=== PATIENT | female | born 2005 | race Caucasian/White ===

== ENCOUNTER 2024-12-11 01:58 | Emergency (ER) | payer SELFPAY ==
[2024-12-11] MEDS ORDERED: ONDANSETRON 4 MG/2 ML VIAL ONE ×2 (02:29→03:38)
[2024-12-11] MEDS ORDERED: NA CHLORIDE 0.9% 2,000 ML ONE (02:30)
[2024-12-11] MEDS ORDERED: Acetylcysteine 6000mg/30mL IV ONE ×2 (02:47→03:00)
[2024-12-11 02:49] LABS: Absolute Lymphocytes (CBC) 2.4 K/uL (0.7-4.9); Hematocrit 41.7 % (36.0-45.0); Hemoglobin 14.3 g/dL (12.0-15.0); MCH 29.4 pg (27.0-35.0); MCHC 34.3 g/dL (32.0-36.0); MCV 85.5 fL (80-100); MPV 7.1 fL (7.6-11.3); Nucleated RBC Absolute Count 0.0 (0-0); Nucleated Red Blood Cells % 0.1 % (0-0); RBC Red Blood Cell Count 4.87 M/uL (3.86-4.86); White Blood Count 12.40 thou/uL (4.3-10.9)
[2024-12-11 02:53] LABS: PT Prothrombin Time 14.5 SECONDS (10-13.0); PTT, Activated Partial Thromb 33.9 SECONDS (27.2-37.4); Protime INR 1.29
[2024-12-11] MEDS ORDERED: [UNRECOGNIZED DRUG - OTHER] IV ONE (02:58)
[2024-12-11 03:15] LABS: ALT/SGPT 38.0 U/L (13-56); AST/SGOT 24.0 U/L (15-37); Albumin 3.7 g/dL (3.4-5.0); Albumin/Globulin Ratio 0.9 (1.1-1.8); Alkaline Phosphatase 93.0 U/L (45-117); Anion Gap 10.8 mEq/L (5.0-15.0); BUN Blood Urea Nitrogen 8.0 mg/dL (7-18); Bilirubin Indirect, Calculated 0.3 mg/dL (0.2-0.8); Globulin 4.2 g/dL (2.3-3.5); Glucose Level 172.0 mg/dL (74-106); Potassium 2.8 mEq/L (3.5-5.1)
[2024-12-11] MEDS ORDERED: PROMETHAZINE INJ 25 MG/ML AMP ONE (04:32)
[2024-12-11] MEDS ORDERED: METOCLOPRAMIDE 10 MG/2mL INJ ONE (04:35)
[2024-12-11 04:51] LABS: METHAMPHETAM NEGATIVE (NEGATIVE); THC Cannibis NEGATIVE (NEGATIVE)
[2024-12-11] MEDS ORDERED: DIPHENHYDRAMINE 50 MG/ML VIAL ONE (04:57)
[2024-12-11] MEDS ORDERED: NA CHLORIDE 0.9% 500 ML ONE (05:10)
[2024-12-11] MEDS ORDERED: FAMOTIDINE 20 MG/2 ML VIAL IV ONE (05:11)
[2024-12-11] MEDS ORDERED: KCL 20 MEQ/100 mL IVPB 100 ML IV ONE (05:11)
--- NOTE | 2024-12-11 05:32 | EDPHYS ---
Physician Documentation [facility] Name: Stephenie Rosenberg Age: 19 yrs Sex: Female : 2005 Arrival Date: 12/11/2024 Time: 01:58 Bed 4 Private MD: ED Physician Jeffrey Newman HPI: 12/11 02:07 This 19 yrs old White Female presents to ER via Unassigned with complaints of Possible sp4 Overdose, pt stated she took 20,000mg of tylenol over the last 2 hours. 05:17 Patient presents after consuming 40 tablets of 500 mg Tylenol. Patient reports sp4 consuming the 1 hour prior to arrival. Patient states she was stressed out secondary to life issues. No previous history of overdose.. Historical: - Allergies: 02:26 mushroom; jb4 - PMHx: 02:26 None; jb4 - PSHx: 02:26 None; jb4 - Immunization history:: Adult Immunizations up to date. - Infectious Disease History:: Denies. - Social history:: Smoking status: Patient denies any tobacco usage or history of. - Family history:: not pertinent. ROS: 05:17 Constitutional: Negative for fever, chills, and weight loss, positive for Tylenol sp4 overdose , positive for suicide attempt 05:17 All other systems are negative, Exam: 05:17 Constitutional: This is a well developed, well nourished patient who is awake, alert, sp4 and in no acute distress. Head/Face: Normocephalic, atraumatic. Eyes: Pupils equal round and reactive to light, extra-ocular motions intact. Lids and lashes normal. Conjunctiva and sclera are not injected. Cornea within normal limits. Periorbital areas with no swelling, redness, or edema. ENT: Nares patent. No nasal discharge, no septal abnormalities noted. Tympanic membranes are normal and external auditory canals are clear. Oropharynx with no redness, swelling, or masses, exudates, or evidence of obstruction, uvula midline. Mucous membranes moist. Neck: Trachea midline, no thyromegaly or masses palpated, and no cervical lymphadenopathy. Supple, full range of motion without nuchal rigidity, or vertebral point tenderness. Chest/axilla: Normal chest wall appearance and motion. Nontender with no deformity. No lesions are appreciated. Cardiovascular: Regular rate and rhythm with a normal S1 and S2. No gallops, murmurs, or rubs. No pulse deficits. Respiratory: Lungs have equal breath sounds bilaterally, clear to auscultation and percussion. No rales, rhonchi or wheezes noted. No increased work of breathing, no retractions or nasal flaring. Abdomen/GI: Soft, with normal bowel sounds. No distension or tympany. No guarding or rebound. No evidence of tenderness throughout. Back: No spinal tenderness. No costovertebral tenderness. Skin: Warm, dry with normal turgor. Normal color with no rashes, no lesions, and no evidence of cellulitis. MS/ Extremity: Pulses equal, no cyanosis. Neurovascular intact. Full, normal range of motion. Neuro: Awake and alert, GCS 15, oriented to person, place, time, and situation. Cranial nerves II-XII grossly intact. Motor strength 5/5 in all extremities. Sensory grossly intact. Psych: Awake, alert, with orientation to person, place and time. Behavior, mood, and affect are within normal limits 05:17 ECG was reviewed by the Attending Physician. EKG at 0 242 normal sinus rhythm, rate 93, no ST elevation or depression, Vital Signs: 02:19 BP 151 / 93; Pulse 124; Resp 16; Temp 98.3; Pulse Ox 96% on R/A; Weight 101.8 kg (M); jb4 Height 5 ft. 1 in. (R); Pain 2/10; 03:00 BP 125 / 101; Pulse 85; Resp 18 S; Pulse Ox 97% on R/A; ha1 04:00 BP 141 / 92; Pulse 94; Resp 18 S; Pulse Ox 98% on R/A; ha1 05:00 BP 135 / 88; Pulse 76; Resp 18 S; Pulse Ox 96% on R/A; ha1 05:45 BP 134 / 76; Pulse 76; Resp 17 S; Pulse Ox 95% on R/A; ha1 06:00 BP 130 / 80; Pulse 80; Resp 19 S; Pulse Ox 95% on R/A; ha1 06:50 BP 130 / 86; Pulse 87; Resp 18 S; Pulse Ox 95% on R/A; ha1 02:19 Body Mass Index 42.41 (101.80 kg, 154.94 cm) jb4 02:19 Pain Scale: Adult jb4 Mily Coma Score: 05:17 Eye Response: spontaneous(4). Motor Response: obeys commands(6). Verbal Response: sp4 oriented(5). Total: 15. MDM: 02:16 Medical Screening Exam initiated sp4 05:31 Differential diagnosis: Ingestion/exposure to Acetaminophen polypharmacy, over sp4 medication, hypoglycemia. Data reviewed: vital signs, nurses notes, old medical records, lab test result(s), EKG. Consideration of Admission/Observation Patient was admitted/placed on observation. Escalation of care including admission/observation considered. Management of patient was discussed with the following: Manager Field Services: Discussed with [facility] attending physician.. ED course: Patient was discussed with admitting Dr. Palafox. Dr. Palafox recommended transfer for higher level of care and hepatology consult. Patient was discussed with transfer service at [facility]. [facility] reports that the patient will be on a waiting list. At this time we feel it is more appropriate for the patient to be transferred faster for consultation with gastroenterology, hepatology. Patient Tylenol level is in the toxic range. Acetadote was initiated.. 12/11 02:16 Order name: Acetaminophen; Complete Time: 03:50 sp4 12/11 06:04 Interpretation: ACETA 201.2. sp4 12/11 02:16 Order name: Basic Metabolic Panel; Complete Time: 03:50 4 12/11 02:16 Order name: CBC with Diff; Complete Time: 03:50 4 12/11 02:16 Order name: ETOH Level; Complete Time: 03:50 4 12/11 02:16 Order name: Hepatic Function; Complete Time: 03:50 sp4 12/11 02:16 Order name: PT-INR; Complete Time: 03:50 sp4 12/11 02:16 Order name: Test, Urine; Complete Time: 05:33 sp4 12/11 02:16 Order name: Ptt, Activated; Complete Time: 03:50 sp4 12/11 02:16 Order name: Salicylate; Complete Time: 03:50 sp4 12/11 02:16 Order name: Urine Drug Screen; Complete Time: 05:33 sp4 12/11 04:49 Order name: Acetaminophen; Complete Time: 06:04 sp4 12/11 02:16 Order name: EKG; Complete Time: 02:17 sp4 12/11 02:16 Order name: EKG - Nurse/Tech; Complete Time: 02:58 sp4 12/11 02:16 Order name: IV Saline Lock; Complete Time: 02:43 sp4 12/11 02:16 Order name: Labs collected and sent; Complete Time: 02:43 sp4 12/11 02:16 Order name: Suicide Precautions; Complete Time: 02:43 sp4 12/11 02:16 Order name: Suicide Screening ([place]); Complete Time: :43 sp4 EC:42 Rate is 93 beats/min. Rhythm is regular, Normal Sinus Rhythm. QRS [place] is Normal. HI sp4 interval is normal. QRS interval is normal. QT interval is normal. No Q waves. T waves are Normal. No ST changes noted. Clinical impression: No evidence of ischemia. Interpreted by me. Reviewed by me. Administered Medications: 02:42 Drug: NS 0.9% IV 1000 ml IV at 1 bolus Per protocol; to be given as a bolus over 60 ha1 minutes Route: IV; Rate: 1 bolus; Site: right antecubital; 03:45 Follow up: Response: No adverse reaction; IV Status: Completed infusion ha1 02:43 Drug: NS 0.9% IV 1000 ml IV at 1 bolus Per protocol; to be given as a bolus over 60 ha1 minutes Route: IV; Rate: 1 bolus; Site: right antecubital; 06:00 Follow up: Response: No adverse reaction; IV Status: Completed infusion ha1 02:43 Drug: Actidose-Sorbitol PO Suspension 50 grams PO once Route: PO; ha1 03:00 Follow up: Response: No adverse reaction ha1 02:43 Drug: Ondansetron IVP 4 mg IVP once; over 2 minutes Route: IVP; Site: right antecubital;ha1 03:00 Follow up: Response: No adverse reaction; No change in condition ha1 03:18 Drug: Acetadote IV 50 mg/kg IV at calculated rate once; not to exceed 5.5 grams ha1 administer over 4 hours Route: IV; Rate: calculated rate; Site: right antecubital; 07:12 Follow up: Response: No adverse reaction; IV Status: Infusion continued upon transfer ha1 03:19 Drug: Acetadote IV 150 mg/kg IV at calculated rate once; not to exceed 16.5 grams ha1 administer over 1 hour Route: IV; Rate: calculated rate; Site: right antecubital; 04:30 Follow up: Response: No adverse reaction; IV Status: Completed infusion ha1 04:00 Drug: Ondansetron IVP 4 mg IVP once; over 2 minutes Route: IVP; Site: right antecubital;ha1 04:30 Follow up: Response: No adverse reaction; Marked relief of symptoms ha1 05:00 Drug: metoCLOPramide IVP 10 mg IVP once; over 1 to 2 minutes Route: IVP; Site: right ha1 antecubital; 05:30 Follow up: Response: No adverse reaction; Marked relief of symptoms; Nausea is decreasedha1 05:07 Drug: Promethazine IM 50 mg IM once Route: IM; Site: right deltoid; ha1 05:30 Follow up: Response: No adverse reaction; Marked relief of symptoms; Nausea is decreasedha1 05:07 Drug: diphenhydrAMINE IVP 25 mg IVP once Route: IVP; Site: right antecubital; ha1 05:20 Follow up: Response: No adverse reaction; Marked relief of symptoms ha1 05:08 Not Given (Physician Discretion): potassiumeffervescent tablet 50 meq PO once; dissolve ha1 in 4 ounces of water or juice 06:50 Drug: Potassium Chloride IV 20 mEq IV at calculated rate once; administer over 1-2 ha1 hours Route: IV; Rate: calculated rate; Site: left forearm; 07:13 Follow up: Response: No adverse reaction; IV Status: Infusion continued upon transfer ha1 Disposition: 20:33 Chart complete. sp4 Disposition Summary: 12/11/24 05:31 Transfer Ordered Notes: Transfer Location: [facility] sp4 Reason: Higher level of care sp4 Condition: Stable sp4 Problem: new sp4 Symptoms: have improved sp4 Accepting Physician: WIWINDY Coker Attending (12/11/24 07:14) ha1 Diagnosis - Acute acetaminophen overdose, acute suicide attempt sp4 - Hypokalemia sp4 - Nausea with vomiting, unspecified sp4 Forms: - Medication Reconciliation Form sp4 - SBAR form sp4 Critical care time excluding procedures: 05:30 Critical care time: Bedside Care: 36 minutes, Consultation: 12 minutes, Family sp4 Intervention: 12 minutes. Total time: 60 minutes Signatures: Dispatcher [employer] EDMS Ziyad West, RN RN jb4 Rosa Bear, RN RN vc1 Melva Ortiz RN RN ha1 Jeffrey Newman MD MD sp4 Corrections: (The following items were deleted from the chart) 02:17 02:17 ACETAMINOPHEN+C.LAB.BRZ ordered. EDMS EDMS 02:17 02:17 BASIC METABOLIC PANEL+C.LAB.BRZ ordered. EDMS EDMS 02:17 02:17 CBC+H.LAB.BRZ ordered. EDMS EDMS 02:17 02:17 ETHANOL+C.LAB.BRZ ordered. EDMS EDMS 02:17 02:17 HEPATIC FUNCTION+C.LAB.BRZ ordered. EDMS EDMS 02:17 02:17 PROTIME (+INR)+COAG.LAB.BRZ ordered. EDMS EDMS 02:17 02:17 Test, Urine+UC.LAB.BRZ ordered. EDMS EDMS 02:17 02:17 PTT, ACTIVATED+COAG.LAB.BRZ ordered. EDMS EDMS 02:17 02:17 SALICYLATE+C.LAB.BRZ ordered. EDMS EDMS 02:17 02:17 URINE DRUG SCREEN+UC.LAB.BRZ ordered. EDMS EDMS 04:49 04:49 ACETAMINOPHEN+C.LAB.BRZ ordered. EDMS EDMS 05:33 05:31 [facility] John Paul Attending MD siri horner 07:14 05:33 [facility] Attending MD horner ha1
--- NOTE | 2024-12-11 05:32 | ER ---
Nurse's Notes [facility] Name: Stephenie Rosenberg Age: 19 yrs Sex: Female : 2005 Arrival Date: 12/11/2024 Time: 01:58 Bed 4 Private MD: Diagnosis: Acute acetaminophen overdose, acute suicide attempt;Hypokalemia;Nausea with vomiting, unspecified Presentation: 12/11 02:19 Chief complaint: Patient states: Pt reports ingesting 9000mg of tylenol \\T\\ 11pm and jb4 [id number] at 1 am. reports 2/10 abdominal pain 30minutes after initial ingestion. Poison control contacted. Coronavirus screen: At this time, the client does not indicate any symptoms associated with coronavirus-19. Ebola Screen: No symptoms or risks identified at this time. Initial Sepsis Screen: Does the patient meet any 2 criteria? HR > 90 bpm. Does the patient have a suspected source of infection? No. Patient's initial sepsis screen is negative. Risk Assessment: Do you want to hurt yourself or someone else? Patient reports desire/thoughts of hurting themselves or someone else. Provider notified. Onset of symptoms was December 11, 2024. Transition of care: patient was not received from another setting of care. 02:19 Method Of Arrival: Ambulatory jb4 02:19 Acuity: AMY 2 jb4 Historical: - Allergies: 02:26 mushroom; jb4 - PMHx: 02:26 None; jb4 - PSHx: 02:26 None; jb4 - Immunization history:: Adult Immunizations up to date. - Infectious Disease History:: Denies. - Social history:: Smoking status: Patient denies any tobacco usage or history of. - Family history:: not pertinent. Screenin:51 [facility] ED Fall Risk Assessment (Adult) History of falling in the last 3 months, ha1 including since admission No falls in past 3 months (0 pts) Confusion or Disorientation No (0 pts) Intoxicated or Sedated Yes (3 pts) Impaired Gait No (0 pts) Mobility Assist Device Used No (0 pt) Altered Elimination No (0 pt) Score/Fall Risk Level 3 or more points = High Risk Oriented to surroundings, Maintained a safe environment, Educated pt \\T\\ family on fall prevention, incl call for assistance when getting out of bed, Hourly rounding (assess needs \\T\\ fall precautionary measures) done. Abuse screen: Denies threats or abuse. Denies injuries from another. Nutritional screening: No deficits noted. Tuberculosis screening: No symptoms or risk factors identified. Assessment: 02:10 General: Appears uncomfortable, Behavior is calm, cooperative. Pain: Complains of pain ha1 in abdomen Pain currently is 5 out of 10 on a pain scale. Quality of pain is described as burning, crampy. Neuro: Level of Consciousness is awake, alert, obeys commands, Oriented to person, place, time, situation, Reports suicidal ideation . Cardiovascular: Capillary refill < 3 seconds Patient's skin is warm and dry. Respiratory: Airway is patent Respiratory effort is even, unlabored, Respiratory pattern is regular, symmetrical. GI: Abdomen is round non-distended, obese, Reports lower abdominal pain, upper abdominal pain, nausea, vomiting. : No signs and/or symptoms were reported regarding the genitourinary system. Derm: Skin is pink, warm \\T\\ dry. Musculoskeletal: Circulation, motion, and sensation intact. 02:19 Reassessment: Poison control recommended Doing tox work up, do a repeat Acet level at 3 jb4 am, 4 hours from initial ingestion at 11pm. Give antiemetics, and activated charcoal 1g/kg. Recommended Acetadote if tylenol level above 150mcg/ml after repeat. ER physician noted. Case #[id number]. 02:35 Reassessment: PROVIDED EDUCATION TO PATIENT AND FAMILY MEMBER ON THE PLAN OF CARE AND ha1 MEDICATION ADMINISTRATION. 03:10 Reassessment: Patient and/or family updated on plan of care and expected duration. Pain ha1 level reassessed. Patient is alert, oriented x 3, equal unlabored respirations, skin warm/dry/pink. Patient states symptoms have not improved. notified Dr. Newman. Medicated as ordered . 03:30 General: Behavior is cooperative. Neuro: Reports dizziness, feeling weak and tired. ha1 04:10 Reassessment: Patient and/or family updated on plan of care and expected duration. Pain ha1 level reassessed. 05:15 Reassessment: Patient and/or family updated on plan of care and expected duration. Pain ha1 level reassessed. Patient states symptoms have improved. 05:50 Reassessment: Patient and/or family updated on plan of care and expected duration. Pain ha1 level reassessed. 06:20 Reassessment: Patient and/or family updated on plan of care and expected duration. Pain ha1 level reassessed. 06:30 Reassessment: NURSE TO NURSE REPORT GIVEN TO RECEIVING NURSE YULIANA CARBALLO. ha1 Overdose: 02:05 [place] Suicide Severity Screening: "In the past month, have you wished you were ha1 or wished you could go to sleep and not wake up?" Patient responds "yes." Based off client's responses, additional C-SSRS screening questions required. "In the past month, have you actually had any thoughts of killing yourself?" Patient responds "yes." "In your lifetime, have you ever done anything, started to do anything, or prepared to do anything to end your life?" Patient responds "yes." Patient reports suicidal intent occurred greater than 3 months prior. 05:53 [place] Suicide Severity Screening: "In the past month, have you actually had any ha1 thoughts of killing yourself?" Patient responds "yes." Based off client's responses, additional C-SSRS screening questions required. Vital Signs: 02:19 BP 151 / 93; Pulse 124; Resp 16; Temp 98.3; Pulse Ox 96% on R/A; Weight 101.8 kg (M); jb4 Height 5 ft. 1 in. (R); Pain 2/10; 03:00 BP 125 / 101; Pulse 85; Resp 18 S; Pulse Ox 97% on R/A; ha1 04:00 BP 141 / 92; Pulse 94; Resp 18 S; Pulse Ox 98% on R/A; ha1 05:00 BP 135 / 88; Pulse 76; Resp 18 S; Pulse Ox 96% on R/A; ha1 05:45 BP 134 / 76; Pulse 76; Resp 17 S; Pulse Ox 95% on R/A; ha1 06:00 BP 130 / 80; Pulse 80; Resp 19 S; Pulse Ox 95% on R/A; ha1 06:50 BP 130 / 86; Pulse 87; Resp 18 S; Pulse Ox 95% on R/A; ha1 02:19 Body Mass Index 42.41 (101.80 kg, 154.94 cm) [facility] 02:19 Pain Scale: Adult jb4 Mily Coma Score: 05:17 Eye Response: spontaneous(4). Motor Response: obeys commands(6). Verbal Response: sp4 oriented(5). Total: 15. ED Course: 02:05 Patient arrived in ED. gm2 02:05 Patient has correct armband on for positive identification. Placed in gown. Bed in low ha1 position. Call light in reach. Side rails up X2. Adult w/ patient. 02:06 Jeffrey Newman MD is Attending Physician. sp4 02:26 Melva Ortiz RN is Primary Nurse. ha1 02:26 Triage completed. jb4 02:26 Arm band placed on right wrist. jb4 02:30 Provided Education on: suicide prevention . ha1 02:40 Inserted saline lock: 20 gauge in right antecubital area, using aseptic technique. rv1 Blood collected. Flushed with 10 mL NS. 02:43 Acetaminophen Sent. ha1 02:43 Basic Metabolic Panel Sent. ha1 02:43 CBC with Diff Sent. ha1 02:43 ETOH Level Sent. ha1 02:43 Hepatic Function Sent. ha1 02:43 PT-INR Sent. ha1 02:43 Test, Urine Sent. ha1 02:43 Ptt, Activated Sent. ha1 02:43 Salicylate Sent. ha1 02:58 EKG done, by ED staff, reviewed by Jeffrey Newman MD. vk 03:00 One-on-one care X 60 minutes. ha1 03:17 Notified ED physician of a critical lab result(s). Tylenol 201.2. kl 06:13 Inserted saline lock: 22 gauge in left forearm, using aseptic technique. Flushed with rv1 10 mL NS. 06:17 connected the mobile manager butadiene convertor operator for [facility] with Dr. Newman for patient transfer eb consultation. 06:23 administrative approval given by Monica Ojeda/ patient has been accepted to [facility] eb Unit [address] C bed 956/ Dr. Edna Ventura has accepted the patient in transfer/ report to be called to [phone]. 07:11 No provider procedures requiring assistance completed. Patient transferred, IV remains ha1 in place. Administered Medications: 02:42 Drug: NS 0.9% IV 1000 ml IV at 1 bolus Per protocol; to be given as a bolus over 60 ha1 minutes Route: IV; Rate: 1 bolus; Site: right antecubital; 03:45 Follow up: Response: No adverse reaction; IV Status: Completed infusion 02:43 Drug: NS 0.9% IV 1000 ml IV at 1 bolus Per protocol; to be given as a bolus over 60 ha1 minutes Route: IV; Rate: 1 bolus; Site: right antecubital; 06:00 Follow up: Response: No adverse reaction; IV Status: Completed infusion 02:43 Drug: Actidose-Sorbitol PO Suspension 50 grams PO once Route: PO; ha1 03:00 Follow up: Response: No adverse reaction 02:43 Drug: Ondansetron IVP 4 mg IVP once; over 2 minutes Route: IVP; Site: right antecubital;ha1 03:00 Follow up: Response: No adverse reaction; No change in condition 1 03:18 Drug: Acetadote IV 50 mg/kg IV at calculated rate once; not to exceed 5.5 grams ha1 administer over 4 hours Route: IV; Rate: calculated rate; Site: right antecubital; 07:12 Follow up: Response: No adverse reaction; IV Status: Infusion continued upon transfer ha1 03:19 Drug: Acetadote IV 150 mg/kg IV at calculated rate once; not to exceed 16.5 grams ha1 administer over 1 hour Route: IV; Rate: calculated rate; Site: right antecubital; 04:30 Follow up: Response: No adverse reaction; IV Status: Completed infusion 1 04:00 Drug: Ondansetron IVP 4 mg IVP once; over 2 minutes Route: IVP; Site: right antecubital;1 04:30 Follow up: Response: No adverse reaction; Marked relief of symptoms ha1 05:00 Drug: metoCLOPramide IVP 10 mg IVP once; over 1 to 2 minutes Route: IVP; Site: right ha1 antecubital; 05:30 Follow up: Response: No adverse reaction; Marked relief of symptoms; Nausea is decreasedha1 05:07 Drug: Promethazine IM 50 mg IM once Route: IM; Site: right deltoid; ha1 05:30 Follow up: Response: No adverse reaction; Marked relief of symptoms; Nausea is decreasedha1 05:07 Drug: diphenhydrAMINE IVP 25 mg IVP once Route: IVP; Site: right antecubital; ha1 05:20 Follow up: Response: No adverse reaction; Marked relief of symptoms ha1 05:08 Not Given (Physician Discretion): potassiumeffervescent tablet 50 meq PO once; dissolve ha1 in 4 ounces of water or juice 06:50 Drug: Potassium Chloride IV 20 mEq IV at calculated rate once; administer over 1-2 ha1 hours Route: IV; Rate: calculated rate; Site: left forearm; 07:13 Follow up: Response: No adverse reaction; IV Status: Infusion continued upon transfer ha1 Medication: 05:53 VIS not applicable for this client. ha1 Outcome: 05:31 ER care complete, transfer ordered by . sp4 07:13 Transferred by ground EMS to [facility], Transfer form ha1 completed. X-rays sent w/ patient. 07:13 Condition: stable 07:13 Instructed on the need for transfer, Demonstrated understanding of instructions, 07:14 Patient left the ED. ha1 Signatures: Violeta Mccurdy RN RN kl Bryson, James, RN RN jb4 Danita Villar Heidy, RN RN ha1 Adriana Gordon rv1 Jeffrey Newman MD MD sp4 Mitchell, Ginger 2 Latesha Ford Corrections: (The following items were deleted from the chart) 02:45 02:19 Risk Assessment: Do you want to hurt yourself or someone else? Patient reports no jb4 desire to harm self or others. jb4 02:46 02:19 Reassessment: Poison control recommended Doing tox work up, do a repeat Acet jb4 level at 3 am, 4 hours from initial ingestion at 11pm. Give antiemetics, and activated charcoal 1g/kg. Recommended Acetadote if tylenol level above 150mcg/ml after repeat. ER physician noted jb4 05:56 03:05 Reassessment: PROVIDED EDUCATION TO PATIENT AND FAMILY MEMBER ON THE PLAN OF CARE ha1 AND MEDICATION ADMINISTRATION ha1 06:13 02:40 Inserted saline lock: 22 gauge in left forearm, using aseptic technique. Flushed rv1 with 10 mL NS rv1
[2024-12-11 07:19] VITALS: TEMP 98.3
[2024-12-11 07:26] VITALS: O2SAT 95
[2024-12-11 07:29] VITALS: BP 130/86
== END 2024-12-11 07:14 | disposition short-term general hospital (02) ==
LOC: ER 01:58
DX: T39.1X2A Poisoning by 4-Aminophenol derivatives, intentional self-harm, initial encounter (principal); E87.6 Hypokalemia; R11.2 Nausea with vomiting, unspecified
CPT/HCPCS: 36415; 80048; 80076; 80143; 80179; 80307; 81025; 82077; 85025; 85610; 85730; 93005; 96372; 99291; 99292; J0132; J1200; J2405; J2550; J2765; J3480; J7030; J7040